=== PATIENT | male | born 1960 | race Caucasian/White ===

== ENCOUNTER 2017-03-04 18:27 | Inpatient (IN) | payer MEDICARE, OTHER ==
[~2017-03-04] VITALS: Ht 175.3 cm; Wt 84.8 kg
[2017-03-04] MEDS ORDERED: VANCOMYCIN IV 200 ML ONE (19:48)
[2017-03-04] MEDS ORDERED: METRONIDAZOLE 500 MG/NS 100ML 100 ML IV ONE (19:48)
[2017-03-04] MEDS ORDERED: LEVOFLOXACIN 500 MG/D5W 100 ML ONE (19:49)
[2017-03-04] MEDS ORDERED: OXYC30TA2 PO (19:58)
[2017-03-04] MEDS ORDERED: ZIPR60CA2 PO (19:58)
[2017-03-04] MEDS ORDERED: LISI10TA5 PO (19:58)
[2017-03-04] MEDS ORDERED: PREG200C PO (19:58)
[2017-03-04] MEDS ORDERED: INSU100V7 SQ (19:58)
[2017-03-04] MEDS ORDERED: FENT1PAT5 TP (19:58)
[2017-03-04] MEDS ORDERED: INSU100V SQ (19:58)
[2017-03-04] MEDS ORDERED: INSU100C (19:58)
[2017-03-04] MEDS ORDERED: QUET50TA PO (19:58)
--- NOTE | 2017-03-04 23:44 | NUR ---
REGGIE NOEL AT BEDSIDE FOR EVAL.
[2017-03-05] MEDS ORDERED: LORAZEPAM 2 MG/1 ML VIAL IM ONE (00:30)
[2017-03-05] MEDS ORDERED: LORAZEPAM 2 MG/1 ML VIAL ONE (00:48)
[2017-03-05 01:02] LABS: BASOPHILS % (AUTO) 0.7 % (0.0-2.0); EOSINOPHILS % (AUTO) 0.3 % (0.0-7.0); HEMATOCRIT 38.9 % (36.7-47.1); HEMOGLOBIN 13.1 g/dL (12.5-16.3); LYMPHOCYTES # (AUTO) 0.9 K/uL (20.0-40.0); LYMPHOCYTES % (AUTO) 14.8 % (20.5-51.5); MEAN CORPUSCULAR HGB CONC 34 g/dL (32.5-36.3); MEAN CORPUSCULAR VOLUME 79.9 fL (73.0-96.2); MONOCYTES # (AUTO) 0.4 K/uL (2.0-10.0); MONOCYTES % (AUTO) 5.8 % (0.0-11.0); NEUTROPHILS # (AUTO) 4.9 K/uL (1.8-8.9); NEUTROPHILS % (AUTO) 78.4 % (38.5-71.5); PLATELET COUNT (AUTO) 229 K/uL (152-348); RED BLOOD CELL COUNT(AUTO) 4.87 MIL/uL (4.06-5.63); WHITE BLOOD COUNT (AUTO) 6.3 K/uL (3.6-10.2)
[2017-03-05 01:26] LABS: CARBON DIOXIDE 24 mmol/L (21-32); CHLORIDE 100 mmol/L (98-107); GLUCOSE 282 mg/dL (74-106); POTASSIUM 3.9 mmol/L (3.5-5.1); UREA NITROGEN, BLOOD 17 mg/dL (7-18)
[2017-03-05 01:30] LABS: ETHANOL < 3 MG/DL (0-0)
[2017-03-05 01:32] LABS: ALANINE AMINOTRANSFERASE 28 U/L (16-63); ALKALINE PHOSPHATASE 93 U/L (50-136); ASPARTATE AMINOTRANSFERASE 16 U/L (15-37); BILIRUBIN,DIRECT 0.1 mg/dL (0.0-0.2); BILIRUBIN,TOTAL 0.3 mg/dL (0.2-1.0); TOTAL PROTEIN, SERUM 8.4 g/dL (6.4-8.2)
[2017-03-05 01:33] LABS: ACETAMINOPHEN < 2.0 ug/mL (10-30)
[2017-03-05 02:17] LABS: THYROID STIMULATING HORMONE 1.587 mIU/mL (0.358-3.740)
--- NOTE | 2017-03-05 02:20 | NUR ---
Pt. admitted to MHU , under care of Dr. WAY Belongs List completed
[2017-03-05] MEDS ORDERED: MORPHINE SULFATE 4 MG/1 ML DISP.SYRIN IM STA (02:26)
[2017-03-05] MEDS ORDERED: diphenhydrAMINE 50 MG/1 ML VIAL IM STA (02:26)
--- NOTE | 2017-03-05 02:39 | NUR ---
TRANSFERRED PATIENT TO ROOM 145A
[2017-03-05] MEDS ORDERED: diphenhydrAMINE 50 MG/1 ML VIAL ONE (02:47)
[2017-03-05] MEDS ORDERED: MORPHINE SULFATE 4 MG/1 ML DISP.SYRIN ONE (02:47)
[2017-03-05] MEDS ORDERED: TEMAZEPAM 7.5 MG CAPSULE PO PRN (03:00)
[2017-03-05] MEDS ORDERED: MAGNESIUM HYDROXIDE 30 ML LIQUID UDC PO PRN (03:00)
[2017-03-05] MEDS ORDERED: MAG HYDROX/AL HYDROX/SIMETH 30 ML LIQUID UDC PO PRN (03:00)
[2017-03-05 03:22] VITALS: BP 154/99
--- NOTE | 2017-03-05 04:17 | NUR ---
GPS: Admitted to unit earlier a 56 yr.old male under the care of / in stable condition. Pt.is on a 72 hour hold for DTO. Pt.has been hearing voices telling him to harm others and has been off of his psych.meds.for atleast 1 week. Pt.is anxious but cooperative during admission process. Belongings list completed. Pt.actively hearing voices at this time but no aggressive behavior noted. Safety emphasized. Re-assured prn. Will monitor behavior.
[2017-03-05 07:30] VITALS: BP 144/90
[2017-03-05] MEDS: ACETAMINOPHEN 325 MG TABLET PO PRN ×2 (10:23→17:52)
[2017-03-05] MEDS: LORAZEPAM 0.5 MG TABLET PO PRN ×2 (10:24→17:52)
[2017-03-05] MEDS ORDERED: DEXTROSE 50% 50 ML DISP.SYRIN IV PRN (10:45)
[2017-03-05] MEDS ORDERED: INSULIN REGULAR, HUMAN 300 UNITS/3 ML VIAL SQ PRN (10:45)
--- NOTE | 2017-03-05 11:27 | NUR ---
Initial DC Plan: Patient was recently evicted from his home. He is currently residing at the [facility] in [place] [[address] [place] [address]. [place] [address]; ]. His is currently looking for permanent housing. SW will follow up with MD, patient, and patient's Megan [[phone]] to discuss most appropriate discharge plans. SW will form a safe and proper discharge.
--- NOTE | 2017-03-05 11:32 | NUR ---
Firearms Reporting: MIKE submitted Mental Health Report to [facility] on 03/05.
[2017-03-05] MEDS: BLOOD SUGAR DIAGNOSTIC 1 EACH STRIP VI SCH ×3 (12:08→21:14)
[2017-03-05] MEDS: FENTANYL 50 MCG/HR PATCH TD SCH (12:17)
[2017-03-05] MEDS: METOPROLOL TARTRATE 25 MG TABLET PO SCH ×2 (12:20→21:00)
[2017-03-05] MEDS: INSULIN REGULAR, HUMAN 300 UNIT/3 ML VIAL SQ PRN ×2 (12:31→18:49)
[2017-03-05] MEDS: ZIPRASIDONE 20 MG CAPSULE PO SCH ×2 (14:44→21:00)
[2017-03-05 15:00] VITALS: BP 124/74
--- NOTE | 2017-03-05 15:59 | NUR ---
Gps/Outside Sales Associate- Found 2 sealed pills of aleve at patient's bedside, when confronted patient claimed that was his meds. he brought with him. Discouraged patient and educated patient not to be taking any meds. from home while in the MHU., he denies hiding any other medications. Bedside drawer seached, pockets, none found.
[2017-03-05] MEDS: PREGABALIN 100 MG CAPSULE PO SCH (17:52)
[2017-03-05 20:34] VITALS: BP 120/74
[2017-03-05] MEDS: INSULIN DETEMIR 300 UNIT/3 ML CARTRIDGE SQ SCH (21:00)
[2017-03-05] MEDS ORDERED: INSULIN DETEMIR 300 UNIT/3 ML CARTRIDGE SQ SCH (21:00)
[2017-03-05] MEDS: ATORVASTATIN 20 MG TABLET PO SCH (21:00)
[2017-03-06] MEDS: ACETAMINOPHEN 325 MG TABLET PO PRN (01:59)
[2017-03-06] MEDS: BLOOD SUGAR DIAGNOSTIC 1 EACH STRIP VI SCH ×4 (06:40→20:56)
[2017-03-06 07:30] VITALS: BP 134/73
[2017-03-06] MEDS: PREGABALIN 100 MG CAPSULE PO SCH ×2 (08:02→17:23)
[2017-03-06] MEDS: ZIPRASIDONE 20 MG CAPSULE PO SCH ×2 (08:02→20:54)
[2017-03-06] MEDS: METOPROLOL TARTRATE 25 MG TABLET PO SCH ×2 (08:11→20:55)
[2017-03-06] MEDS: INSULIN REGULAR, HUMAN 300 UNIT/3 ML VIAL SQ PRN ×3 (08:16→17:22)
[2017-03-06] MEDS: LORAZEPAM 0.5 MG TABLET PO PRN (08:48)
[2017-03-06] MEDS ORDERED: DEXTROSE 50% 50 ML DISP.SYRIN IV PRN (15:00)
[2017-03-06] MEDS: OXYCODONE HCL 5 MG TABLET PO PRN (15:32)
[2017-03-06] MEDS ORDERED: INFLUENZA VACCINE 2017-2018 0.5 ML DISP.SYRIN IM ONE (17:00)
[2017-03-06] MEDS ORDERED: PNEUMOCOCCAL 23-VAL P-SAC VAC 0.5 ML VIAL IM ONE (17:00)
[2017-03-06 17:01] VITALS: BP 107/67
[2017-03-06 20:00] VITALS: BP 112/68
[2017-03-06] MEDS: ATORVASTATIN 20 MG TABLET PO SCH (20:54)
[2017-03-06] MEDS: INSULIN DETEMIR 300 UNIT/3 ML CARTRIDGE SQ SCH (20:57)
[2017-03-06] MEDS: INSULIN REGULAR, HUMAN 300 UNITS/3 ML VIAL SQ PRN (20:58)
[2017-03-07] MEDS: OXYCODONE HCL 5 MG TABLET PO PRN ×3 (04:50→16:49)
[2017-03-07] MEDS: BLOOD SUGAR DIAGNOSTIC 1 EACH STRIP VI SCH ×5 (06:32→20:22)
[2017-03-07 07:30] VITALS: BP 155/91
[2017-03-07] MEDS: PREGABALIN 100 MG CAPSULE PO SCH ×2 (08:38→16:15)
[2017-03-07] MEDS: ZIPRASIDONE 20 MG CAPSULE PO SCH ×2 (08:38→20:14)
[2017-03-07] MEDS: INSULIN REGULAR, HUMAN 300 UNIT/3 ML VIAL SQ PRN ×4 (08:45→16:36)
[2017-03-07] MEDS: METOPROLOL TARTRATE 25 MG TABLET PO SCH ×2 (10:31→20:15)
[2017-03-07 17:21] VITALS: BP 149/94
[2017-03-07] MEDS: ATORVASTATIN 20 MG TABLET PO SCH (20:14)
[2017-03-07] MEDS: INSULIN REGULAR, HUMAN 300 UNITS/3 ML VIAL SQ PRN (20:17)
[2017-03-07] MEDS: INSULIN DETEMIR 300 UNIT/3 ML CARTRIDGE SQ SCH (20:18)
--- NOTE | 2017-03-07 22:00 | NUR ---
RECEIVED PATIENT IN HIS ROOM. HE IS A/O X 4 PLEASANT AND COOPERATIVE WITH DIET, MEDICATION REGIMENT AND PLAN OF CARE AT THIS TIME. HE DENIES SI, AH/VH AT THIS TIME.
[2017-03-07] MEDS: LORAZEPAM 0.5 MG TABLET PO PRN (23:02)
--- NOTE | 2017-03-07 23:55 | NUR ---
PATIENT CAME TO THE NURSE STATION AND STATED THAT HE WAS FEELING ANXIOUS. HE DENIED AH/VS. ATIVAN 0.5MG PO PRN WAS GIVEN.WILL CONTINUE TO MONITOR.
--- NOTE | 2017-03-08 00:35 | NUR ---
PATIENT NOTED ASLEEP IN HIS ROOM.
[2017-03-08] MEDS: OXYCODONE HCL 5 MG TABLET PO PRN (05:56)
[2017-03-08] MEDS: BLOOD SUGAR DIAGNOSTIC 1 EACH STRIP VI SCH ×2 (06:39→11:30)
--- NOTE | 2017-03-08 06:46 | NUR ---
PATIENT SLEPT FOR APPROX 5.30 HOURS THROUGH THE NIGHT. HE C/O GENERALIZED BODY PAIN 7/10 IN THE PAIN INTENSITY SCALE. OXYCODONE 20MG PO PRN WAS GIVEN FOR PAIN AT 0556. PATIENT WAS NOTED MILDLY ANXIOUS ABOUT HIS INCOMING DISCHARGED. WILL CONTINUE TO MONITOR.
[2017-03-08 08:02] VITALS: BP 156/84
[2017-03-08] MEDS: ZIPRASIDONE 20 MG CAPSULE PO SCH (08:36)
[2017-03-08 08:37] VITALS: BP 156/89
[2017-03-08] MEDS: METOPROLOL TARTRATE 25 MG TABLET PO SCH (08:37)
[2017-03-08] MEDS: FENTANYL 50 MCG/HR PATCH TD SCH (08:37)
[2017-03-08] MEDS: PREGABALIN 100 MG CAPSULE PO SCH (08:40)
--- NOTE | 2017-03-08 12:05 | NUR ---
GPS: Nursing Notes: Discharge Notes: Patient is awake and responding to his name, A/Ox4, ambulatory, self care, cooperative with nursing care, compliant with his medications, denies any SI/HI, denies any AH/VH, denies any pain or discomfort at this time, denies any SOB, discharge to his Megan , picked up by Megan (), transported via private vehicle, instructions and prescription given to patient, patient needs to follow up with his own psychiatrist and action installer as soon as possible for aftercare per Dr. Franklin.
== END 2017-03-08 12:05 | disposition home or self-care (01) | DRG 885 ==
LOC: ER 18:28 → GPS 03-05 02:00
PROVIDERS: ADMIT Psychiatry & Neurology Psychosomatic Medicine; ATTEND Internal Medicine
DX: F20.0 Paranoid schizophrenia (principal); E11.65 Type 2 diabetes mellitus with hyperglycemia; T43.596A Underdosing of other antipsychotics and neuroleptics, initial encounter; Y92.009 Unspecified place in unspecified non-institutional (private) residence as the place of occurrence of the external cause; Z79.4 Long term (current) use of insulin; E78.5 Hyperlipidemia, unspecified; G89.4 Chronic pain syndrome; Z86.19 Personal history of other infectious and parasitic diseases; I10 Essential (primary) hypertension; Z79.899 Other long term (current) drug therapy; M19.90 Unspecified osteoarthritis, unspecified site; F41.8 Other specified anxiety disorders; G47.9 Sleep disorder, unspecified; Z76.5 Malingerer [conscious simulation]
CPT/HCPCS: 36415; 70030-TC; 70450; 71010; 84443; 85025; 85730; 93005; A4663; G0480; G0480-TC; J1200; J1815; J1956; J2060; J2270; J3370; J3490